=== PATIENT | female | born 1990 | race Hispanic/Latino ===

== ENCOUNTER 2019-03-07 11:45 | Emergency (ER) | payer BC ==
--- NOTE | 2019-03-07 11:55 | Event Note ---
ED Screening Note Date of service: 03/07/19 Time: 11:52 ED Screening Note: This is a 28 y.o. F. that presents to the ER with right ankle pain. Patient states she missteps and twisted right ankle while falling. Patient iced and elevated. This initial assessment/diagnostic orders/clinical plan/treatment(s) is/are subject to change based on patients health status, clinical progression and re- assessment by fellow clinical providers in the ED. Further treatment and workup at subsequent clinical providers discretion. Patient/guardian urged not to elope from the ED as their condition may be serious if not clinically assessed and managed. Initial orders include: XR right ankle
--- NOTE | 2019-03-07 12:32 | XRay Report ---
Right ankle-3 views INDICATION: lateral pain and swelling r/o fx. COMPARISON: None. IMPRESSION: Mild soft tissue swelling about the ankle especially medially, with no displaced fractur e or malalignment. No significant DJD. Signer Name: Valdemar Badillo MD Signed: 03/07/2019 12:27 PM Workstation Name: [id number]
--- NOTE | 2019-03-07 12:39 | Emergency Department Report ---
ED Lower Extremity HPI - General Chief Complaint: Extremity Injury, Lower Stated Complaint: RT ANKLE POSS INJURED/PAIN Time Seen by Provider: 03/07/19 11:52 Source: patient Mode of arrival: Ambulatory Limitations: No Limitations - History of Present Illness Initial Comments: Joana is a 28-year-old female who twisted her right ankle while stepping from a curb. She has mild pain. She heard a snap. She just wanted to make sure she didn't have a broken bone. The pain is located anterior to the ankle bone. MD Complaint: ankle injury -: Sudden, This morning Injury: Ankle: Right Type of Injury: inversion Place: street/outdoors Severity: mild Worsens With: weight bearing Context: other (twisted ankle while stepping down from curb) Associated Symptoms: snap/pop sensation, able to partially bear weight - Related Data Allergies Allergy/AdvReac Type Severity Reaction Status Date / Time zolpidem [From Ambien] Allergy Shortness Verified 03/07/19 11:53 of Breath ED Review of Systems ROS: Stated complaint: RT ANKLE POSS INJURED/PAIN Other details as noted in HPI Constitutional: denies: fever, malaise Skin: denies: rash, lesions Neurological: denies: numbness, paresthesias ED Past Medical Hx - Past Medical History Previous Medical History?: Yes Hx Psychiatric Treatment: Yes (depression, anxiety) Hx Asthma: Yes - Surgical History Past Surgical History?: Yes Additional Surgical History: lymph nodes - Social History Smoking Status: Never Smoker Substance Use Type: None ED Physical Exam - General Limitations: No Limitations General appearance: alert, in no apparent distress - Head Head exam: Present: atraumatic, normocephalic - Expanded Lower Extremity Exam Right Lower Leg exam: Present: normal inspection, full ROM Ankle exam: Present: full ROM, tenderness, swelling. Absent: abrasion, laceration, ecchymosis, deformity, crepidus, dislocation, erythema, anterior draw sign Foot/Toe exam: Present: normal inspection, full ROM. Absent: tenderness Neuro vascular tendon exam: Present: no vascular compromise - Neurological Exam Neurological exam: Present: alert, oriented X3 - Psychiatric Psychiatric exam: Present: normal affect, normal mood ED Course Vital Signs 03/07/19 11:54 Temperature 98.3 F Pulse Rate 84 Respiratory 18 Rate Blood Pressure 102/60 O2 Sat by Pulse 96 Oximetry ED Lower Extremity MDM - Radiology Data Radiology results: report reviewed According to radiology impression, no bony abnormality with mild soft tissue swelling - Medical Decision Making Right ankle sprain: Joint is stable. Do not suspect severe ligamentous injury. Referred to orthopedic surgeon Critical care attestation.: If time is entered above; I have spent that time in minutes in the direct care of this critically ill patient, excluding procedure time. ED Disposition Clinical Impression: Right ankle sprain Disposition: TO HOME OR SELFCARE Is pt being admited?: No Does the pt Need Aspirin: No Condition: Stable Instructions: Ankle Sprain (ED) Referrals: TRISTEN SANTOYO MD [Staff Physician] - as needed
[2019-03-07 14:21] VITALS: BP 102/63
== END 2019-03-07 14:21 | disposition home or self-care (01) ==
LOC: ED 11:45
DX: S93.401A Sprain of unspecified ligament of right ankle, initial encounter (principal); F41.9 Anxiety disorder, unspecified; F32.9 Major depressive disorder, single episode, unspecified; J45.909 Unspecified asthma, uncomplicated; Z88.8 Allergy status to other drugs, medicaments and biological substances; X50.9XXA Other and unspecified overexertion or strenuous movements or postures, initial encounter; Y93.89 Activity, other specified; Y92.89 Other specified places as the place of occurrence of the external cause; Y99.8 Other external cause status